=== PATIENT | female | born 1980 | race Hispanic/Latino ===

== ENCOUNTER 2019-04-04 18:29 | Emergency (ER) | payer OTHER ==
--- NOTE | 2019-04-04 19:11 | RAD ---
Radiograph right shoulder 2 views: HISTORY: 39-year-old female with acute right shoulder pain FINDINGS: No fracture, dislocation, or subluxation. IMPRESSION: Negative.
[2019-04-04] MEDS ORDERED: Acetaminophen 500 MG TAB ONE (20:23)
== END 2019-04-04 20:27 | disposition home or self-care (01) ==
LOC: ERS 18:29
DX: M25.511 Pain in right shoulder (principal); I10 Essential (primary) hypertension; F41.9 Anxiety disorder, unspecified; F17.210 Nicotine dependence, cigarettes, uncomplicated; Z79.899 Other long term (current) drug therapy; Y93.68 Activity, volleyball (beach) (court); W18.30XA Fall on same level, unspecified, initial encounter